=== PATIENT | male | born 1990 | race African-American/Black ===

== ENCOUNTER 2025-04-25 15:59 | Emergency (ER) | payer SELFPAY ==
[~2025-04-25] VITALS: Ht 185.4 cm; Wt 82.0 kg
[2025-04-25 16:02] VITALS: BP 132/89; PULSE 76; RESP 18; TEMP 36.7; O2SAT 99
[2025-04-25] MEDS ORDERED: IBUP-2028 MT (23:32)
[2025-04-25] MEDS ORDERED: FAMO-135 MT (23:32)
[2025-04-25] MEDS ORDERED: LOPE2CAP MT (23:32)
[2025-04-25] MEDS ORDERED: ONDA4TAB50 MT (23:32)
[2025-04-25] MEDS ORDERED: TOPUD PO (23:32)
[2025-04-25] MEDS ORDERED: LACT1CAP78 MT (23:32)
== END 2025-04-25 17:13 | disposition left against medical advice (07) ==
LOC: ER 15:59
DX: R10.9 Unspecified abdominal pain (principal); Z53.21 Procedure and treatment not carried out due to patient leaving prior to being seen by health care provider

== ENCOUNTER 2025-04-25 21:05 | Emergency (ER) | payer MEDICARE ==
[~2025-04-25] VITALS: Ht 188 cm; Wt 78.0 kg
[2025-04-25 21:18] VITALS: O2SAT 100
[2025-04-25 21:57] LABS: HEMATOCRIT. 48.7 % (42.0-52.0); HEMOGLOBIN. 16.4 g/dL (14.0-18.0); MEAN PLATELET VOLUME 7.6 fl (7.4-10.4); PLATELET 292 x1000/uL (130-400); RED BLOOD CELL COUNT 5.19 mill/uL (4.7-6.1); RED CELL DISTRIBUTION WIDTH 13.9 % (11.6-14.6)
[2025-04-25 22:13] LABS: CREATININE 1.0 mg/dL (0.6-1.3); UREA NITROGEN BLOOD < 5 mg/dL (9-23)
[2025-04-25] MEDS: ONDANSETRON 4MG ODT PO ONE (22:13)
[2025-04-25] MEDS: FAMOTIDINE 20MG TABLET PO ONE (22:13)
[2025-04-25 22:15] LABS: ASPARTATE AMINOTRANSFERASE 18 IU/L (<34); BILIRUBIN DIRECT 0.1 mg/dL (<=3.0)
[2025-04-25] MEDS ORDERED: SODIUM CHLORIDE 0.9% 1,000 ML IV ONE (22:15)
[2025-04-25 22:16] LABS: BILIRUBIN TOTAL 0.5 mg/dL (0.1-1.0); PROTEIN TOTAL 8.0 g/dL (6.0-8.3)
[2025-04-25 22:23] LABS: EOSINOPHILS % MANUAL 1.0 % (0.0-5.0); LYMPHOCYTES % MANUAL 33.0 % (20.0-50.0); MONOCYTES % MANUAL 14.0 % (2.0-8.0); NEUTROPHILS % MANUAL 52.0 % (45.0-75.0); PLATELET ESTIMATE NORMAL
[2025-04-25] MEDS ORDERED: FAMO-135 MT (23:32)
[2025-04-25] MEDS ORDERED: TOPUD PO (23:32)
[2025-04-25] MEDS ORDERED: LOPE2CAP MT (23:32)
[2025-04-25] MEDS ORDERED: ONDA4TAB50 MT (23:32)
[2025-04-25] MEDS ORDERED: IBUP-2028 MT (23:32)
[2025-04-25] MEDS ORDERED: LACT1CAP78 MT (23:32)
[2025-04-26] MEDS: HYDROCODONE/ACETAMINOPHEN 5/325MG TABLET PO ONE (01:01)
[2025-04-26 01:07] VITALS: BP 106/67; PULSE 80; RESP 18; TEMP 37; O2SAT 98
== END 2025-04-26 01:08 | disposition home or self-care (01) ==
LOC: ER 21:06
DX: K52.9 Noninfective gastroenteritis and colitis, unspecified (principal); Z79.899 Other long term (current) drug therapy
CPT/HCPCS: 80076; 80048; 80320; 83690; 85025; 36415; 74176; 99284; Q0162; J7030; G0480